=== PATIENT | male | born 1965 | race Caucasian/White ===

== ENCOUNTER 2019-10-18 23:57 | Inpatient (IN) | payer MEDICAID, MEDICARE ==
[~2019-10-18] VITALS: Ht 185.4 cm; Wt 81.8 kg
[~2019-10-18 23:57] MED LIST: AMIO200T61 PO; ASPI81TA44 PO; ATOR10TA PO; CARV3.1289 PO; DOCU100C40 PO; LISI10TA4 PO; PER10325T PO
[2019-10-19] MEDS ORDERED: nitroGLYCERIN 0.4mg SUBLingual tab SL PRN (00:40)
[2019-10-19 00:46] LABS: BASOPHILS # (AUTO) 0.1 X10'3 (0-0.2); BASOPHILS % (AUTO) 0.8 % (0-1); EOSINOPHILS # (AUTO) 0.1 X10'3 (0-0.9); EOSINOPHILS % (AUTO) 1.6 % (0-6); HEMATOCRIT 40.5 % (42.0-52.0); LYMPHOCYTES # (AUTO) 1.3 X10'3 (1.1-4.8); LYMPHOCYTES % (AUTO) 14.5 % (21-51); MEAN CORPUSCULAR HEMOGLOBIN 31.5 PG (27.0-31.0); MEAN CORPUSCULAR HGB CONC 34.5 g/dL (33.0-36.5); MEAN CORPUSCULAR VOLUME 91.3 FL (78-98); MEAN PLATELET VOLUME 8.4 FL (7.4-10.4); MONOCYTES # (AUTO) 0.9 X10'3 (0-0.9); MONOCYTES % (AUTO) 9.3 % (2-12); NEUTROPHILS # (AUTO) 6.8 X10'3 (1.8-7.7); NEUTROPHILS % (AUTO) 73.8 % (42-75); PLATELET COUNT 216 X10'3 (140-440); RED BLOOD COUNT 4.44 X10'6 (4.70-6.10); WHITE BLOOD COUNT 9.2 X10'3 (4.5-11.0)
[2019-10-19 00:54] LABS: ALANINE AMINOTRANSFERASE 19 U/L (12-78); ALBUMIN 3.6 G/DL (3.4-5.0); ALKALINE PHOSPHATASE 89 IU/L (46-116); ANION GAP 7 (8-16); ASPARTATE AMINO TRANSFERASE 22 U/L (10-37); BILIRUBIN,TOTAL 0.2 MG/DL (0.1-1.0); BLOOD UREA NITROGEN 19 MG/DL (7-18); BUN/CREATININE RATIO 16.4 (5.4-32.0); CALCIUM 8.5 MG/DL (8.5-10.1); CHLORIDE 106 MMOL/L (99-107); CREATININE 1.16 MG/DL (0.60-1.10); GLUCOSE 108 MG/DL (70-104); POTASSIUM 3.4 MMOL/L (3.5-5.1); SODIUM 142 MMOL/L (135-145); TOTAL CARBON DIOXIDE 29.1 MMOL/L (24-32); TOTAL PROTEIN 7.2 G/DL (6.4-8.2); eGFR 66 ML/MIN
[2019-10-19] MEDS ORDERED: furosemide 10 MG/1 ML 10ml inj IV ONE (01:00)
[2019-10-19] MEDS ORDERED: labetalol 20mg/4ml (5mg/ml) syringe IV ONE (01:00)
[2019-10-19] MEDS ORDERED: FURO40TA4 PO (01:21)
[2019-10-19] MEDS ORDERED: METO-395 PO (01:21)
[2019-10-19] MEDS ORDERED: POTA10CA44 PO (01:21)
[2019-10-19] MEDS ORDERED: SIMV10TA98 PO (01:21)
[2019-10-19] MEDS ORDERED: heparin 10,000 units/1 ML INJ IV PRN (01:35)
[2019-10-19] MEDS ORDERED: heparin 25,000 UNIT/250ml bag 250 ML IV SCH (01:35)
[2019-10-19] MEDS ORDERED: heparin 10,000 units/1 ML INJ IV ONE ×2 (01:35→01:50)
--- NOTE | 2019-10-19 01:47 | NUR ---
PT PLACED ON HOSPITAL BED FOR COMFORT
[2019-10-19] MEDS ORDERED: metoprolol tartrate 1mg/ml inj IV ONE (02:10)
[2019-10-19] MEDS ORDERED: enalaprilat dihydrate 2.5mg/2ml vial IV ONE (02:10)
[2019-10-19] MEDS ORDERED: ondansetron/PF 4mg/2ml inj IV PRN (02:40)
[2019-10-19] MEDS ORDERED: acetaminophen 325mg tablet PO PRN (02:40)
[2019-10-19] MEDS ORDERED: mag hydrox/Alum hydrox/simeth 30ml oral suspension PO PRN (02:40)
[2019-10-19] MEDS ORDERED: HYDROcodone/acetaminophen 10/325mg tab PO PRN (02:40)
[2019-10-19] MEDS ORDERED: HYDROcodone/acetaminophen 5mg/325mg tablet PO PRN (02:40)
[2019-10-19] MEDS ORDERED: morphine 2 MG/ML inj. syringe IV PRN ×2 (02:40)
[2019-10-19] MEDS ORDERED: magnesium hydroxide 30ml (MOM) UD suspension PO PRN (02:40)
[2019-10-19] MEDS ORDERED: normal saline 1000ml 1,000 ML IV SCH (02:40)
[2019-10-19] MEDS ORDERED: oxyCODONE/APAP 10/325mg tablet PO PRN ×2 (02:45)
[2019-10-19 06:09] LABS: HEMOGLOBIN A1C 4.7 % (4.5-6.2)
[2019-10-19 06:24] LABS: URINE AMPHETAMINE SCREEN POSITIVE (Neg); URINE BARBITUATE SCREEN NEGATIVE (Neg); URINE BENZODIAZEPINES SCREEN NEGATIVE (Neg); URINE CANNABINOID SCREEN POSITIVE (Neg); URINE COCAINE SCREEN NEGATIVE (Neg); URINE METHADONE SCREEN NEGATIVE (Neg); URINE OPIATE SCREEN NEGATIVE (Neg); URINE PHENCYCLIDINE SCREEN NEGATIVE (Neg)
[2019-10-19 06:35] VITALS: BP 173/85
[2019-10-19] MEDS ORDERED: aspirin 81mg tablet.DR PO SCH (08:00)
[2019-10-19] MEDS ORDERED: potassium chloride 10mEq ER tablet PO SCH (08:00)
[2019-10-19] MEDS ORDERED: lisinopril 10 MG tablet PO SCH (08:00)
[2019-10-19] MEDS ORDERED: furosemide 40mg tablet PO SCH (08:00)
--- NOTE | 2019-10-19 08:00 | NUR ---
Patient in room PCU 3023A Admitted from ED. I have received report from César FARAH and had the opportunity to ask questions and assume patient care. Pt in bed oriented to unit, will continue to monitor.
--- NOTE | 2019-10-19 08:35 | NUR ---
PAGER ID: [phone] MESSAGE: [phone] CESAR QUESADA LEFT AMA. HE HAS A WARRENT FOR HIS ARREST. SECURITY AWARE. LAURA JHA. DR BRADY PHONED BACK. SHE IS AWARE THAT I HAVE NOTIFIED SECURITY .
--- NOTE | 2019-10-19 09:00 | NUR ---
Notified by nursing aid that patient's room is empty, all belongings taken, tele monitor removed and PIV removed, broker in charge, security and Dr. Wilson notified, patient was seen last around 0830 eating breakfast after ekg was completed.
[2019-10-19] MEDS ORDERED: metoprolol succinate 25mg (24-HOUR) SR. Tablet PO SCH (21:00)
[2019-10-19] MEDS ORDERED: atorvastatin 10mg tablet PO SCH (21:00)
== END 2019-10-19 08:15 | disposition left against medical advice (07) | DRG 280 ==
LOC: ER 23:58 → ED HOLD 10-19 02:40 → PCU 3S 10-19 07:20
PROVIDERS: ADMIT Internal Medicine; ATTEND Internal Medicine
DX: I21.4 Non-ST elevation (NSTEMI) myocardial infarction (principal); I50.23 Acute on chronic systolic (congestive) heart failure; E78.5 Hyperlipidemia, unspecified; F17.210 Nicotine dependence, cigarettes, uncomplicated; Z53.29 Procedure and treatment not carried out because of patient's decision for other reasons; I11.0 Hypertensive heart disease with heart failure; Z96.643 Presence of artificial hip joint, bilateral; I25.119 Atherosclerotic heart disease of native coronary artery with unspecified angina pectoris; Z82.49 Family history of ischemic heart disease and other diseases of the circulatory system; Z95.1 Presence of aortocoronary bypass graft
CPT/HCPCS: 36415; 71045; 71250; 80053; 80305; 83036; 83880; 84484; 85025; 85730; 93005; G0378; J1644; J1940; J3490; J7030